=== PATIENT | male | born 1950 | race Hispanic/Latino ===

== ENCOUNTER 2020-03-26 16:40 | Emergency (ER) | payer MEDICARE ==
[~2020-03-26 16:40] MED LIST: EPINEPHrine 1 MG/10 ML SYRINGE ONE; SODIUM BICARB 8.4% 50 MEQ/50 ML SYRINGE IV ONE
--- NOTE | 2020-03-26 17:07 | Emergency Department Report ---
ED CPR HPI - General Stated Complaint: CARDIAC ARREST Time Seen by Provider: 03/26/20 17:02 - History of Present Illness Initial Comments: 70-year-old male, history of CHF, COPD, hypertension, presents to ED in cardiac arrest. Per EMS, patient was riding in the car as his was driving, traveling from [place] to [place], when he began to complain of some difficulty breathing. pulled the car over and went inside a nearby business to call 911. When PD arrived, they pulled patient out of the vehicle and began CPR. Upon EMS arrival patient found to be in asystole. Unable to obtain IV or IO access. Patient given epi x2 doses down the I-gel tube. EMS reports patient has been down now for approximately 20 minutes. Patient arrives to ED in continued arrest. MD Complaint: collapsed during rest Place: other Bystander CPR Performed: No Initial Findings in the Field: unresponsive, no respirations, no pulse Associated Symptoms: shortness of breath Treatments Prior to Arrival: other airway device (I-gel), chest compressions, epinephrine mgs # (2) ED Review of Systems ROS: Stated complaint: CARDIAC ARREST Other details as noted in HPI Comment: Unobtainable due to pts medical conditions Respiratory: shortness of breath ED Physical Exam - Head Head exam: Present: atraumatic, normocephalic - Eye Pupils: Present: other (fixed bilaterally) - ENT ENT exam: Present: other (blood in mouth, I-gel in place) - Neck Neck exam: Present: normal inspection - Respiratory Respiratory exam: Present: rhonchi, other (no spontaneous breaths) - Cardiovascular Cardiovascular Exam: Present: other (no palpable pulse) - GI/Abdominal GI/Abdominal exam: Present: distended - Extremities Exam Extremities exam: Present: normal inspection - Neurological Exam Neurological exam: Present: other (GCS 3) - Skin Skin exam: Present: warm, dry, intact, normal color - Intubation Laryngoscope: fiberoptic video scope Size: 4 ET Tube Size: 8 Tube Secured Depth (cm): 22 Tube Secured Location: teeth Tube Placement Confirmation: visualized tube passing t, equal breath sounds bilat, no breath sounds over epi, confirmation by capnometr Patient Tolerated Procedure: well Intubation Complications: none ED Medical Decision Making - Medical Decision Making 70-year-old male presents to ED in cardiac arrest. Upon arrival, I gel was replaced with ET tube. ACLS was run according to protocol. Please see nurses notes for details. Unfortunately, unable to achieve ROSC. Time of called at 16:54. - Differential Diagnosis PE, arrhythmia, ACS, CVA Critical care attestation.: If time is entered above; I have spent that time in minutes in the direct care of this critically ill patient, excluding procedure time. ED Disposition Clinical Impression: Cardiac arrest Disposition: DC-20 Is pt being admited?: No Condition: Stable Referrals: PRIMARY CARE, [Primary Care Provider] - 3-5 Days Time of Disposition: 17:08
== END 2020-03-27 01:45 ==
LOC: ED 16:40
DX: I46.9 Cardiac arrest, cause unspecified (principal)
CPT/HCPCS: 31500; 92950; J0171